=== PATIENT | male | born 1965 | race Caucasian/White ===

== ENCOUNTER 2017-08-18 10:12 | Emergency (ER) | payer OTHER ==
[~2017-08-18] VITALS: Ht 185.4 cm; Wt 97.0 kg
[2017-08-18 10:13] VITALS: BP 138/87; PULSE 61; RESP 12; TEMP 98.2; O2SAT 96
--- NOTE | 2017-08-18 11:23 | RADRPT ---
EXAM DATE/TIME: 08/18/2017 11:05 [facility] COMPARISON: No previous studies available for comparison. INDICATIONS : Ankle and foot stuck between wall and forklift, pain ankle joint. MEDICAL HISTORY : None. SURGICAL HISTORY : None. ENCOUNTER: Initial ACUITY: 1 day PAIN SCORE: 9/10 LOCATION: Left ankle. FINDINGS: 3 views the left ankle demonstrate no fracture or dislocation. Ankle mortise is intact. Mineralizatio n is within normal limits and there is no significant arthropathy. No soft tissue abnormality or radi opaque foreign body is identified. CONCLUSION: No acute left ankle abnormality is identified. Ezekiel Edwards MD on August 18, 2017 at 11:21 Board Certified Radiologist. This report was verified electronically.
--- NOTE | 2017-08-18 11:23 | RADRPT ---
EXAM DATE/TIME: 08/18/2017 11:03 [facility] COMPARISON: No previous studies available for comparison. INDICATIONS : Foot stuck between wall and fork life, pain arch of foot. MEDICAL HISTORY : None. SURGICAL HISTORY : None. ENCOUNTER: Initial ACUITY: 1 day PAIN SCORE: 9/10 LOCATION: Left foot. FINDINGS: 3 views of the left foot demonstrate subtle lucency through the middle cuneiform possibly representin g a nondisplaced fracture. The other tarsal bones appear intact. Lisfranc joint appears intact. No so ft tissue abnormality or radiopaque foreign body is identified. CONCLUSION: Possible nondisplaced fracture of the middle cuneiform. This could be confirmed with CT, if needed. L isfranc joint appears intact. Ezekiel Edwards MD on August 18, 2017 at 11:14 Board Certified Radiologist. This report was verified electronically.
--- NOTE | 2017-08-18 12:02 | PD ---
HPI Chief Complaint: Musculoskeletal Complaint Time Seen by Provider: 10:47 Travel History International Travel<30 days: No Contact w/Intl Traveler<30days: No Traveled to known affect area: No History of Present Illness HPI 52-year-old male presents to the emergency department status post trauma to his left foot. States that his foot got caught between the wall and a forklift at work and now has pain. States really his pain is located at the ankle joint and is worse with external rotation and flexion of the ankle. Pain is moderate that increases with motion. Patient denies numbness or tingling of the area. States he normally has numbness of the toes so there is no unusual sensation at this point. Patient denies fever, chills, chest pain. States he is otherwise healthy. [facility] Social History Alcohol Use: Yes (occ) Tobacco Use: No Substance Use: No Allergies-Medications (Allergen,Severity, Reaction): Coded Allergies: No Known Allergies (Verified Allergy, Unknown, 08/18/17) Reported Meds & Prescriptions Reported Meds & Active Scripts Active Review of Systems Except as stated in HPI: all other systems reviewed are Neg Physical Exam Narrative GENERAL: Well-nourished, well-developed patient. SKIN: Focused skin assessment warm/dry. HEAD: Normocephalic. EYES: No scleral icterus. No injection or drainage. NECK: Supple, trachea midline. No JVD or lymphadenopathy. CARDIOVASCULAR: Regular rate and rhythm without murmurs, gallops, or rubs. RESPIRATORY: Breath sounds equal bilaterally. No accessory muscle use. MUSCULOSKELETAL: No cyanosis, or edema. No deformities Left foot-neurovascular intact, no crepitus or deformities noted. Limited range of motion secondary to pain. No ecchymosis Left ankle- limited range of motion secondary to pain, however no crepitus, anterior posterior drawer. TTP over the anterior talo fibular ligament. BACK: Nontender without obvious deformity. No CVA tenderness. Data Data Last Documented VS Vital Signs Date Time Temp Pulse Resp B/P (MAP) Pulse Ox O2 Delivery O2 Flow Rate FiO2 08/18/17 13:32 08/18/17 10:13 98.2 61 12 96 Orders Orders Ankle, Complete ([id number]) (08/18/17 ) Foot, Complete ([id number]) (08/18/17 ) Ct Foot W/O Contrast (08/18/17 ) Ed Discharge Order (08/18/17 13:04) [facility] Medical Decision Making Medical Screen Exam Complete: Yes Emergency Medical Condition: Yes Differential Diagnosis Left foot fracture versus contusion versus sprain Narrative Course 52-year-old male presents to the emergency department status post trauma to his left foot. States that his foot got caught between the wall and a forklift at work and now has pain. States really his pain is located at the ankle joint and the is worse with external rotation and flexion. Pain is moderate that increases with motion. Patient denies numbness or tingling of the area. States he normally has numbness of the toes so there is no unusual sensation at this point. Patient denies fever, chills, chest pain. States he is otherwise healthy. Vital signs stable Physical exam- no TTP to the distal aspect of the medial and lateral malleolus. No evidence of crush injury. Imaging studies- foot x-ray with potential fracture. CT ordered and negative for fracture.. Ankle negative for acute process 5 patient on rest ice compression and elevation for symptom relief. Advised to return to work as tolerated. Tylenol or Motrin for pain. Diagnosis Primary Impression: Ankle contusion Qualified Codes: S90.02XA - Contusion of left ankle, initial encounter Additional Impression: Foot contusion Qualified Codes: S90.32XA - Contusion of left foot, initial encounter Referrals: Primary Care Physician Additional Instructions: Use rest ice compression and elevation for symptom control May use ibuprofen or Motrin for and control Return to [facility] for worsening symptoms. Disposition: 01 DISCHARGE HOME Condition: Stable Vilma Brewer Aug 18, 2017 12:02
--- NOTE | 2017-08-18 13:01 | RADRPT ---
EXAM DATE/TIME: 08/18/2017 11:46 [facility] COMPARISON: FOOT LEFT COMPLETE ([id number]), August 18, 2017, 11:03. INDICATIONS : Left foot crushed between forklift and wall RADIATION DOSE: 9.74 CTDIvol (mGy) MEDICAL HISTORY : None SURGICAL HISTORY : None. ENCOUNTER: Initial ACUITY: 1 day PAIN SCALE: 5/10 LOCATION: Left foot TECHNIQUE: Volumetric scanning of the foot was performed. Using automated exposure control and adjustment of th e mA and/or kV according to patient size, radiation dose was kept as low as reasonably achievable to obtain optimal diagnostic quality images. DICOM format image data is available electronically for re view and comparison. FINDINGS: BONES: No evidence of fracture. Alignment is within normal limits. JOINTS: No evidence of joint narrowing or effusion. SOFT TISSUES: Muscles, tendons, and neurovascular structures are grossly unremarkable. No evidence of mass, organiz ed fluid collection, or foreign body. CONCLUSION: 1. No fracture or dislocation. In particular, no fracture involving the middle cuneiform. Zaid Gonzáles Jr., MD on August 18, 2017 at 12:55 Board Certified Radiologist. This report was verified electronically.
== END 2017-08-18 13:33 | disposition home or self-care (01) ==
LOC: NEPK 10:12
DX: S90.02XA Contusion of left ankle, initial encounter (principal); S90.32XA Contusion of left foot, initial encounter; W24.0XXA Contact with lifting devices, not elsewhere classified, initial encounter; Y99.0 Civilian activity done for income or pay
CPT/HCPCS: 73610; 73630; 73700; 99284